=== PATIENT | female | born 1965 | race Caucasian/White ===

== ENCOUNTER 2021-05-07 15:22 | Emergency (ER) | payer OTHER ==
[~2021-05-07] VITALS: Ht 167.6 cm; Wt 90.7 kg
== END 2021-05-07 16:40 | disposition home or self-care (01) ==
LOC: ER 15:22
DX: S83.91XA Sprain of unspecified site of right knee, initial encounter (principal); W01.0XXA Fall on same level from slipping, tripping and stumbling without subsequent striking against object, initial encounter
CPT/HCPCS: 73562-RT; 96372; 99283-25; J1885

== ENCOUNTER 2023-12-13 06:07 | Observation (INO) | payer OTHER ==
[~2023-12-13] VITALS: Ht 167.6 cm; Wt 103.5 kg
[2023-12-13] VITALS (13 sets, daily range): BP systolic 131–174; BP diastolic 77–112
[~2023-12-13 06:07] MED LIST: ABILIFY MYCITE15 M2 PO; ANORO ELLIPTA1 EACH INH; ATOM25 PO; Aspir 8181 MG PO; BUPROPION HCL200 M2 PO; LIPITOR80 MG PO; LISI20 PO; MECL25 PO; OMEP20ER PO; PRAM.125 PO; PRAZ2 PO; TRAZ50 PO; VALA500 PO; VENL37.5 PO
[2023-12-13] MEDS ORDERED: Heparin Sodium 1000 Units/ML 10ML MDV ONE (06:32)
[2023-12-13] MEDS ORDERED: NS 1,000 ML IV ONE ×2 (06:32→06:56)
[2023-12-13] MEDS ORDERED: Bupivacaine 0.5% HCl 5 MG/ML 30MLVIAL ONE (06:32)
[2023-12-13] MEDS ORDERED: CeFAZolin Sodium 1000 mg Vial ONE (06:32)
[2023-12-13] MEDS ORDERED: CeFAZolin Sodium 2,000 MG VIAL ONE (06:55)
[2023-12-13] MEDS ORDERED: NS 100 ML IV ONE (06:56)
[2023-12-13] MEDS ORDERED: NS 500 ML IV ONE (07:21)
[2023-12-13] MEDS ORDERED: FentaNYL Citrate 50 MCG/ML 2 ML Injection ONE ×4 (07:46→08:44)
[2023-12-13] MEDS ORDERED: Midazolam HCl 1MG / ML 2ML Vial ONE ×2 (07:47→08:21)
[2023-12-13] MEDS ORDERED: Lisinopril 10 MG Tab PO SCH (09:30)
[2023-12-13] MEDS ORDERED: OxyCODONE HCL 5 MG TAB PO PRN (09:40)
[2023-12-13] MEDS ORDERED: HYDROcodone 10-APAP 325 TAB PO PRN (09:40)
[2023-12-13] MEDS ORDERED: Acetaminophen 325 MG TABLET PO PRN (09:40)
[2023-12-13] MEDS ORDERED: FLU VACC TS2024-25(6MOS UP)/PF 45 MCG/0.5 ML SYRINGE IM SCH (09:40)
--- NOTE | 2023-12-13 10:03 | NUR ---
Pt back to recovery room in recliner at this time. Xray completed prior to arrival to unit. Pt. alert and oriented at this time. Left chest wall pacemaker site wnl, Icepack applied per dr. pierce. Breakfast provided. Arm imobilizer at bedside. Pt s/o walter called to update on condtion.
[2023-12-13] MEDS ORDERED: Ipratropium/Albuterol SulF 2.5-0.5MG/3 ML Amp INH SCH (10:20)
[2023-12-13] MEDS ORDERED: HydrALAZINE HCl 20 MG / ML 1ML Vial IV PRN (10:35)
--- NOTE | 2023-12-13 11:00 | NUR ---
ASSUMED CARE PT ADMITTED TO FLOOR FROM [facility] POST PACEMAKER PLACEMENT. PT AWAKE AND ALERT. BP STABLE. HR A PACED 60. O2 SATS >90% ON RA. PT DENIES ANY PAIN. ICE IN PLACE TO LEFT CHEST WALL WOUND. WOUND COVERED IN DERMABOND WITH NO BLEEDING, BRUISING OR HEMATOMA NOTED. LEFT ARM IN SLING. PT ABLE TO AMBULATE INDEPENDENTLY. PT ORIENTED TO ROOM AND CALL LIGHT
[2023-12-13] MEDS ORDERED: CeFAZolin Sodium 2,000 MG in NS 100 ML IV SCH (16:00)
--- NOTE | 2023-12-13 17:24 | NUR ---
SHIFT SUMMARY PT REMAINS ALERT AND ORIENTED. BP STABLE. HR REMAINS PACED. O2 SATS REMAIN ABOVE 90% ON RA. PT COMPLAINED OF 5/10 PAIN TO INCISION SITE THAT WAS RELEIVED WITH MEDICATION ADMINISTRATION. PT ABLE TO AMBULATE TO BATHROOM NEEDED. SHOULDER IMMOBILIZER IN PLACE TO LEFT ARM. PT PROVIDED POST PACEMAKER INSTRUCTION PACKET.
[2023-12-13] MEDS ORDERED: TraZODone HCl 50 MG Tab PO SCH (21:00)
[2023-12-13] MEDS ORDERED: Atorvastatin 40 MG Tab PO SCH (21:00)
[2023-12-13] MEDS ORDERED: Prazosin HCl 1 MG Cap PO SCH (21:00)
[2023-12-14 00:05] VITALS: BP 155/84
[2023-12-14 03:31] VITALS: BP 148/95
--- NOTE | 2023-12-14 04:49 | NUR ---
END OF SHIFT SUMMARY: PT A&OX4 AND ACTIVE IN HER CARE, USES CALL LIGHT APPROPRIATELY AND ABLE TO MAKE NEEDS KNOWN. IS SATTING >92% ON ROOM AIR WITH EVEN RESPIRATIONS. ON TELE SHOWING PACED BEAT WITH RATE IN 90'S. VITAL SIGNS STABLE AND AFEBRILE.HAD A DUAL PACER PLACED 12/12 AND THE LEFT UPPER CHEST WALL INCISION SITE IS RED AND INFLAMMED AND TENDER TO THE TOUCH PER PATIENT. NO BLEEDING, FOUL ODOR OR DRAINAGE. HAD AN ICEPACK OVER INCISION SITE AND AN ABDOMINAL BAND TO STABILIZE THE LEFT ARM. HAS A LEFT AC THAT DRAWS BACK AND IS SALINE LOCKED. ABX WERE GIVEN AND PATIENT IS STAND BY ASSIST TO BATHROOM TO MANAGE LINES/CHORDS. EKG WAS DONE THIS AM AND RESULTS IN THE CHART. PLAN IS TO DISCHARGE TODAY IF NO CHANGES. WILL NOTIFY TO ONCOMING RN.
[2023-12-14 04:55] LABS: Hematocrit 43.2 % (33.0-51.0); Hemoglobin 14.7 g/dL (11.5-16.0); Mean Corpuscular HGB 31.2 pg (26.0-34.0); Mean Corpuscular Volume 92 fL (80-100); Mean Platelet Volume 10.3 fL (9.1-12.4); Platelet Count 245 K/mm3 (150-400); RDW Coefficient Variation 12.6 % (11.7-14.2); RDW Standard Deviation 42.3 fL (35.1-46.3); Red Blood Cell Count 4.71 M/mm3 (3.80-5.20); White Blood Cell Count 11.29 K/mm3 (4.00-11.30)
[2023-12-14 05:20] LABS: Bun/Creatinine Ratio 14.4 (12.0-20.0); Calcium, Blood 9.8 mg/dL (8.5-10.1); Creatinine, Blood 0.77 mg/dL (0.40-1.00); Potassium, Blood 4.3 mmol/L (3.5-5.5)
[2023-12-14 07:17] VITALS: BP 167/95
[2023-12-14] MEDS ORDERED: VALTREX50013 PO (08:40)
--- NOTE | 2023-12-14 08:40 | NUR ---
ASSUMPTION OF CARE PT ALERT AND ORIENTED TO ALL, SHE IS CALM, COOPERATIVE TO CARE, SKIN INTACT, NO BREAKDOWN NOTED, INCSION SIT ON LEFT CHEST FROM PACEMAKER INSERTION, SITE COVERED WITH WOUND GLUE, DRESSING INTACT, NO DRAINAGE NOTED, SOME REDNESS/TENDERNSS BUT WNL. HR IN THE 90'S, SBP ELEVATED, MEDICATING PER EMAR, DENIES CP/PRESSURE, NUMB/TINGLING, +BS, NONTENDER, L/S CLEAR T/O, 02 >92% ON RA. CARDIOLOGY TO BEDSIDE THIS AM. PT TO HAVE PACEMAKER INTERIGATION AND IF EVERYTHING LOOKS GOOD PATIENT TO D/C TODAY. PT WITH NO QUESTIONS OR CONCERNS AT THIS TIME, WILL CONTINUE TO MONITOR PT.
[2023-12-14] MEDS ORDERED: ARIPiprazole 5 MG Tab PO SCH (09:00)
[2023-12-14] MEDS ORDERED: Lisinopril 20 MG Tab PO SCH (09:00)
[2023-12-14] MEDS ORDERED: Aspirin 81 MG TabEC PO SCH (09:00)
[2023-12-14] MEDS ORDERED: Pramipexole DI-HCL 0.125 MG Tab PO SCH (09:00)
[2023-12-14] MEDS ORDERED: BuPROPion HCl SR 100 MG TabCR PO SCH (09:00)
[2023-12-14] MEDS ORDERED: ATOMOXETINE 25 MG CAP PO SCH (09:00)
[2023-12-14] MEDS ORDERED: Venlafaxine HCl 25 MG Tab PO SCH (09:00)
[2023-12-14] MEDS ORDERED: Omeprazole 20 MG CapCR PO SCH (09:00)
[2023-12-14] MEDS ORDERED: ValACYClovir HCL 500 MG Tab PO SCH (09:00)
--- NOTE | 2023-12-14 10:21 | NUR ---
NURSING PCU DISCHARGE SUMMARY: No significant changes noted t/o the a.m. Pacer interrogation completed by [employer] rep, report provided to high pressure operator, pt cleared for discharge. Rx faxed to [place] per pt request, PIV dc'd w/cath intact. Pt and s/o verbalized and demonstrated understanding of all written and verbal discharge instructions. No s/s of acute distress at time of discharge. Escorted from unit via w/c accompanied by s/o and HANDLE SEWER at approx [phone].
== END 2023-12-14 10:03 | disposition home or self-care (01) ==
LOC: MHTC 06:07 → PCU 09:43 → MHTC 09:44 → SURS 09:44 → PCU 09:55
PROVIDERS: ADMIT Internal Medicine Cardiovascular Disease
DX: I49.5 Sick sinus syndrome (principal); J43.9 Emphysema, unspecified; I10 Essential (primary) hypertension; G25.81 Restless legs syndrome; E78.5 Hyperlipidemia, unspecified; K76.0 Fatty (change of) liver, not elsewhere classified; F43.10 Post-traumatic stress disorder, unspecified; G47.33 Obstructive sleep apnea (adult) (pediatric); Z79.82 Long term (current) use of aspirin; Z79.899 Other long term (current) drug therapy
CPT/HCPCS: 33208; 71046; 80048; 85027; 93005; 93010; 94640; 94664; 94760; 94762; 96365; 96366; 99152; 99153; A9270; C1785; C1898; G0378; J0690; J1644; J2250; J3010; J7030; J7040; Q9967